=== PATIENT | female | born 1965 | race Caucasian/White ===

== ENCOUNTER 2016-07-25 03:17 | Emergency (ER) | payer BC ==
[2016-07-25 03:27] VITALS: BP 169/79; PULSE 85; RESP 16; TEMP 98.4
--- NOTE | 2016-07-25 03:42 | ED ---
Extremity Problem HPI - General Chief complaint: Extremity Problem,Nontraumatic Stated complaint: Possible Finger/Hand infection Time Seen by Provider: 07/25/16 03:30 Source: patient, RN notes reviewed Mode of arrival: ambulatory Limitations: no limitations - History of Present Illness Initial comments: 51-year-old female patient presents to emergency department for evaluation of swelling, redness, and throbbing pain to the fourth digit on her right hand. Patient states that this started with a swelling around the nail base on Friday , she states that she was doing home remedies such as warm soaks, absent salt soaks and using frankincense and Lavender for the pain. Patient states that tonight the pain worse is swelling increased, and she was unable to sleep due to this. Patient states the pain and warmth seemed to be extending down into her hand. Patient denies any fever or chills. Patient denies any nausea, vomiting, chest pain, dizziness, weakness, back pain, abdominal pain, constipation, diarrhea, dysuria, hematuria, urgency or frequency of urination. Patient denies any numbness or tingling to her hand. - Related Data Home Medications Medication Instructions Recorded Confirmed Latanoprost [Xalatan 0.005%] 1 drop OPHTHALMIC HS 07/25/16 07/25/16 Phentermine HCl [Adipex-P] 37.5 mg PO QAM 07/25/16 07/25/16 Timolol 0.5% Ophth Soln [Timoptic 1 drop BOTH EYES DAILY 07/25/16 07/25/16 0.5% Ophth Soln] Previous Rx's Medication Instructions Recorded Acetaminophen-Codeine 300-30mg 1 tab PO Q4H PRN #20 tablet 07/25/16 [Tylenol #3] Cephalexin [Keflex] 500 mg PO Q6HR #40 cap 07/25/16 Allergies Allergy/AdvReac Type Severity Reaction Status Date / Time lansoprazole [From Prevacid] Allergy Rash/Hives Verified 07/25/16 03:27 omeprazole [From Prilosec] Allergy Rash/Hives Verified 07/25/16 03:27 Review of Systems ROS Statement: Those systems with pertinent positive or pertinent negative responses have been documented in the HPI. ROS Other: All systems not noted in ROS Statement are negative. Past Medical History Additional Past Medical History / Comment(s): glaucoma History of Any Multi-Drug Resistant Organisms: None Reported Additional Past Surgical History / Comment(s): splenectomy, lap band- has been removed, c-sect Past Psychological History: No Psychological Hx Reported Smoking Status: Current every day smoker Past Alcohol Use History: None Reported Past Drug Use History: None Reported General Exam Limitations: no limitations General appearance: alert, in no apparent distress Head exam: Present: atraumatic, normocephalic, normal inspection Eye exam: Present: normal appearance, PERRL, EOMI. Absent: scleral icterus, conjunctival injection, periorbital swelling Neck exam: Present: normal inspection. Absent: tenderness, meningismus, lymphadenopathy Respiratory exam: Present: normal lung sounds bilaterally. Absent: respiratory distress, wheezes, rales, rhonchi, stridor Cardiovascular Exam: Present: regular rate, normal rhythm, normal heart sounds. Absent: systolic murmur, diastolic murmur, rubs, gallop, clicks Extremities exam: Present: other (Fourth digit right hand reveals erythema and swelling to the proximal nail fold, also reveals swelling and erythema to the palmar surface of the fingertip. Fingertip is fluctuant.) Psychiatric exam: Present: normal affect, normal mood Skin exam: Present: warm, dry, intact, normal color. Absent: rash Course Vital Signs 07/25/16 03:23 Temperature 98.4 F Pulse Rate 85 Respiratory 16 Rate Blood Pressure 169/79 O2 Sat by Pulse 100 Oximetry Procedures - Procedures Initial comment: 18-gauge needle stuck and patient's paronychia wound culture was taken. Purulent drainage Was removed Disposition Clinical Impression: Paronychia Disposition: HOME SELF-CARE Condition: Stable Instructions: Paronychia (ED) Additional Instructions: Please return to the Emergency Department if symptoms worsen or any other concerns. Prescriptions: Acetaminophen-Codeine 300-30mg [Tylenol #3] 1 tab PO Q4H PRN #20 tablet PRN Reason: pain Cephalexin [Keflex] 500 mg PO Q6HR #40 cap Time of Disposition: 03:59
[2016-07-25] MEDS ORDERED: CEPHALEXIN 500MG STARTER PACK 4 CAP BTL PO STA (03:58)
[2016-07-25] MEDS ORDERED: ACET/COD 300 MG/30 MG STARTER PACK 6 TAB BTL PO STA (03:58)
== END 2016-07-25 04:13 | disposition home or self-care (01) ==
LOC: EC 03:17
DX: L03.011 Cellulitis of right finger (principal); H40.9 Unspecified glaucoma; F17.200 Nicotine dependence, unspecified, uncomplicated; Z79.899 Other long term (current) drug therapy; Z88.8 Allergy status to other drugs, medicaments and biological substances
CPT/HCPCS: 10160; 87070; 87205; 99283

== ENCOUNTER → 2016-12-20 | Outpatient (CLI) | payer BC ==
--- NOTE | 2016-12-24 07:32 | MM ---
Reason for exam: screening (asymptomatic). Last mammogram was performed 1 year and 6 months ago. History: Patient is postmenopausal. Family history of breast cancer in maternal aunt at age 50. Took hormonal contraceptives for 1 year beginning at age 19. Physical Findings: A clinical breast exam by your physician is recommended on an annual basis and results should be correlated with mammographic findings. MG Screening Mammo w CAD Bilateral CC and MLO view(s) were taken. Prior study comparison: June 09, 2015, bilateral MG screening mammo w CAD. May 24, 2014, bilateral MG screening mammo w CAD. There are scattered fibroglandular densities. No suspicious abnormality. No significant changes when compared with prior studies. ASSESSMENT: Negative, BI-RAD 1 RECOMMENDATION: Routine screening mammogram of both breasts in 1 year.
== END | disposition home or self-care (01) ==
LOC: RADMAMWWP 08:41
PROVIDERS: ATTEND Obstetrics & Gynecology
DX: Z12.31 Encounter for screening mammogram for malignant neoplasm of breast (principal)

== ENCOUNTER → 2016-12-20 | Outpatient (CLI) | payer BC ==
--- NOTE | 2016-12-20 09:04 | XR ---
EXAMINATION TYPE: XR Hip Bilateral Complete DATE OF EXAM: 12/20/2016 COMPARISON: NONE HISTORY: 51-year-old female with bilateral hip pain TECHNIQUE: AP and frog-leg lateral views of each hip FINDINGS: On both sides, there is moderate axial loss of hip joint space. Prominent subchondral sclerosis and b ulky marginal spurring at both the acetabulum and collar osteophytes at the femoral head neck junctio n. No acute fracture, subluxation, or dislocation. IMPRESSION: Moderate bilateral hip osteoarthrosis.
--- NOTE | 2016-12-20 10:55 | MR ---
EXAMINATION TYPE: MR hip RT wo con DATE OF EXAM: 12/20/2016 COMPARISON: NONE HISTORY: Rt. hip pain Standard multiplanar, multisequence MRI departmental protocol. Multiplanar, multisequence images of the right hip were acquired without intravenous contrast. FINDINGS: Numerous subchondral cysts are seen within the femoral head centered around the fovea and p osterior joint. Acetabular subchondral cysts are also seen of the posterior acetabular wall as well a s reactive bone marrow edema. Joint space narrowing at predominates posterior and cephalad along the weightbearing surface. Evaluation of the labrum is suboptimal given the lack of effusion and nonarthr ographic nature of the exam. There is no flattening of the femoral head. No evidence of fracture of t he right femur or acetabulum. Well-circumscribed T2 hyperintense and T1 hypointense osseous lesion near the right lesser trochanter measures 1.1 cm and has no surrounding bone marrow edema, gross evidence of periosteal reaction, or adjacent cortical thickening. Also volume is unremarkable. Small bone island is seen within the right ischial tuberosity. No bursit is or abnormal muscle/tenderness signal to suggest strain or sprain. Mild joint space narrowing is se en of the left femoral acetabular joint. IMPRESSION: 1. 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 Bone marrow edema at opposing surfaces of t he posterior humeral head and posterior acetabulum is seen, also likely from advanced arthrosis. No e vidence of fracture. 2. Nonaggressive appearing well-circumscribed osseous lesion within the right lesser trochanter. Comp arison with radiographs or any prior imaging could be performed for further evaluation.
== END | disposition home or self-care (01) ==
LOC: RADMRIMAIN 07:21
PROVIDERS: ATTEND Physical Medicine & Rehabilitation
DX: M16.0 Bilateral primary osteoarthritis of hip (principal); M25.851 Other specified joint disorders, right hip
CPT/HCPCS: 73521

== ENCOUNTER → 2017-01-10 | Outpatient (CLI) | payer BC ==
--- NOTE | 2017-01-10 09:56 | MR ---
EXAMINATION TYPE: MR brain wo/w con DATE OF EXAM: 01/10/2017 COMPARISON: NONE HISTORY: Visual defect, blurred vision TECHNIQUE: Multiplanar, multisequence images of the brain and brainstem is performed without and with IV contras t, utilizing 7 mL intravenous Gadavist . FINDINGS: Diffusion weighted images demonstrate no evidence of a recent infarct or other diffusion abnormality. There is no extra-axial fluid collection or significant white matter signal abnormality. The ventr icular system and cisternal spaces are normal in size and appearance. The brain volume is age approp riate. Midline structures demonstrate normal morphology. 7 mm pineal gland cyst with a slight mass effect up on the superior tectum. The craniocervical junction appears within normal limits. Post contrast corey ges demonstrate no abnormal enhancement. The dural venous sinuses appear patent. The globes are symme tric and extraocular muscles are unremarkable. Orbital nerves are symmetric. Diffuse right middle tur binate mucosal hypertrophy is incidentally noted as well as a 8 mm mucosal retention cyst versus maxi llary polyp. Scant mucosal thickening is seen within the ethmoid sinuses. Remaining paranasal sinuses and mastoid air cells are well aerated. IMPRESSION: 1. No acute intracranial hemorrhage, territorial infarct, or abnormal enhancement. No intra-axial mas s or midline shift. 2. 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 3. Incidentally noted diffuse right mucosal turbinate hypertrophy and 8mm right maxillary mucosal ret ention cyst versus polyp.
== END | disposition home or self-care (01) ==
LOC: RADMRIMAIN 06:57
PROVIDERS: ATTEND Ophthalmology
DX: E34.8 Other specified endocrine disorders (principal); H53.483 Generalized contraction of visual field, bilateral
CPT/HCPCS: 70553; A9581

== ENCOUNTER → 2018-08-20 | Outpatient (CLI) | payer BC ==
--- NOTE | 2018-08-21 11:50 | MM ---
Reason for exam: screening (asymptomatic). Last mammogram was performed 1 year and 8 months ago. History: Patient is postmenopausal. Family history of breast cancer in maternal aunt at age 50. Took hormonal contraceptives for 1 year beginning at age 19. Physical Findings: A clinical breast exam by your physician is recommended on an annual basis and results should be correlated with mammographic findings. MG Screening Mammo w CAD Bilateral CC and MLO view(s) were taken. Prior study comparison: December 20, 2016, bilateral MG screening mammo w CAD. June 09, 2015, bilateral MG screening mammo w CAD. The breast tissue is heterogeneously dense. This may lower the sensitivity of mammography. No suspicious abnormality. No significant changes when compared with prior studies. ASSESSMENT: Negative, BI-RAD 1 RECOMMENDATION: Routine screening mammogram of both breasts in 1 year.
== END ==
LOC: RADMAMWWP 08:54
PROVIDERS: ATTEND Family Medicine
DX: Z12.31 Encounter for screening mammogram for malignant neoplasm of breast (principal)
CPT/HCPCS: 77067

== ENCOUNTER → 2020-01-27 | Outpatient (CLI) | payer BC ==
--- NOTE | 2020-01-31 09:14 | MM ---
Reason for exam: screening (asymptomatic). Last mammogram was performed 1 year and 5 months ago. History: Patient is postmenopausal. Family history of breast cancer in maternal aunt at age 50. Took hormonal contraceptives for 1 year beginning at age 19. Physical Findings: A clinical breast exam by your physician is recommended on an annual basis and results should be correlated with mammographic findings. MG Screening Mammo w CAD Bilateral CC and MLO view(s) were taken. Prior study comparison: August 20, 2018, bilateral MG screening mammo w CAD. December 20, 2016, bilateral MG screening mammo w CAD. There are scattered fibroglandular densities. No significant changes when compared with prior studies. ASSESSMENT: Benign, BI-RAD 2 RECOMMENDATION: Routine screening mammogram of both breasts in 1 year.
== END | disposition home or self-care (01) ==
LOC: RADMAMWWP 10:30
PROVIDERS: ATTEND Obstetrics & Gynecology
DX: Z12.31 Encounter for screening mammogram for malignant neoplasm of breast (principal)
CPT/HCPCS: 77067

== ENCOUNTER → 2021-02-26 | Outpatient (CLI) | payer BC | END | disposition home or self-care (01) | LOC: LABWHC1 10:37 | PROVIDERS: ATTEND Physician Assistant | DX: U07.1 COVID-19 (principal) | CPT/HCPCS: 36415; 86769 ==

== ENCOUNTER → 2022-05-21 | Outpatient (CLI) | payer BC ==
--- NOTE | 2022-05-22 07:38 | MM ---
Reason for Exam: Screening (asymptomatic). Last mammogram was performed 2 year(s) and 4 month(s) ago. Patient History: Menarche at age 13. First Full-Term at age 19. Postmenopausal. Previous chest radiation therapy. Hormonal Contraceptives, starting at age 19 for 1 year. Maternal aunt had breast cancer, age 50. Risk Values: Verito 5 year model risk: 0.9%. NCI Lifetime model risk: 5.9%. Prior Study Comparison: 12/20/2016 Bilateral Screening Mammogram, [facility]. 08/20/2018 Bilateral Screening Mammogram, [facility]. 01/27/2020 Bilateral Screening Mammogram, [facility]. Tissue Density: There are scattered fibroglandular densities. Findings: Analyzed By CAD. There is no suspicious group of microcalcifications or new suspicious mass in either breast. Overall Assessment: Negative, BI-RAD 1 Management: Screening Mammogram of both breasts in 1 year. A clinical breast exam by your physician is recommended on an annual basis and results should be correlated with mammographic findings. [facility] will attempt to contact patient to return for supplemental views and ultrasound if indicated. Electronically signed and approved by: Rodney Arora DO
== END | disposition home or self-care (01) ==
LOC: RADMAMWWP 08:01
PROVIDERS: ATTEND Family Medicine
DX: Z12.31 Encounter for screening mammogram for malignant neoplasm of breast (principal); Z78.0 Asymptomatic menopausal state; Z80.3 Family history of malignant neoplasm of breast
CPT/HCPCS: 77067